=== PATIENT | female | born 1965 | race Caucasian/White ===

== ENCOUNTER 2016-06-29 13:32 | Observation (INO) | payer OTHER, MEDICAID ==
[~2016-06-29] VITALS: Ht 154.9 cm; Wt 63.0 kg
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
[2016-06-29 13:59] VITALS: BP 128/82; PULSE 97; RESP 17; TEMP 98.4; O2SAT 97
[2016-06-29 14:32] LABS: AUTOMATED NEUTROPHIL # 3.3 TH/MM3 (1.8-7.7); BASOPHIL % 0.5 % (0.0-2.0); HEMATOCRIT 40.3 % (35.0-46.0); HEMO FLAGS DIFF FINAL; LYMPH % 23.6 % (9.0-44.0); LYMPHOCYTE # 1.2 TH/MM3 (1.0-4.8); MEAN CELL VOLUME 87.3 FL (80.0-100.0); MEAN CORPUSCULAR HEMOGLOBIN 29.4 PG (27.0-34.0); MEAN CORPUSCULAR HGB CONC 33.7 % (32.0-36.0); NEUT % 66.9 % (16.0-70.0); PLATELET COUNT 103 TH/MM3 (150-450); RED BLOOD COUNT 4.61 MIL/MM3 (4.00-5.30); RED CELL DISTRIBUTION WIDTH 12.7 % (11.6-17.2)
[2016-06-29 15:02] LABS: BACTERIA, URINE RARE /hpf; BLOOD, URINE NEG (NEG); COMMENT (UR) CULTURE INDICATED; CULTURE IF INDICATED CULTURE INDICATED; GLUCOSE,URINE NEG (NEG); KETONE, URINE NEG (NEG); NITRITE,URINE NEG (NEG); SQUAMOUS EPITHELIAL CELL URINE 2 /hpf (0-5); URINE COLOR YELLOW (YELLW/STRAW)
[2016-06-29 15:04] LABS: ALKALINE PHOSPHATASE 74 U/L (45-117); ALT (GPT) 53 U/L (10-53); ANION GAP 10 MEQ/L (5-15); AST (GOT) 38 U/L (15-37); BICARBONATE 23.1 MEQ/L (21.0-32.0); BLOOD UREA NITROGEN 13 MG/DL (7-18); CHLORIDE 108 MEQ/L (98-107); GLOMERULAR FILTRATION RATE 84 ML/MIN (>89); SODIUM (NA) 141 MEQ/L (136-145); TOTAL BILIRUBIN ADULT 0.3 MG/DL (0.2-1.0)
[2016-06-29 15:04] LABS: AMPHETAMINE, URINE NEG (NEG); BARBITURATES, URINE NEG (NEG); COCAINE, URINE NEG (NEG)
[2016-06-29] MEDS ORDERED: MACR100C2 PO (15:18)
[2016-06-29] MEDS ORDERED: NITROFURANTOIN MONOHYD MACROCR 100 MG CAP PO ONE (15:30)
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
[2016-06-29] MEDS ORDERED: CEFEPIME INJ 2,000 MG in SODIUM CHLORIDE 0.9% INJ 100 ML IV STA (18:54)
[2016-06-29] MEDS ORDERED: SODIUM CHLOR 0.9% 1000 ML INJ 1,000 ML IV ONE (19:00)
[2016-06-29] MEDS ORDERED: SODIUM CHLORIDE 0.9% FLUSH 5 ML FLUSH FLUSH PRN (20:15)
[2016-06-29] MEDS ORDERED: NALOXONE HCL 0.4 MG/ML AMP IV PRN (20:15)
[2016-06-29 20:20] VITALS: BP 141/93; PULSE 79; O2SAT 100
[2016-06-29] MEDS: SODIUM CHLOR 0.9% 1000 ML INJ 1,000 ML IV SCH (21:42)
[2016-06-29] MEDS: SODIUM CHLORIDE 0.9% FLUSH 5 ML FLUSH FLUSH SCH (21:42)
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
[2016-06-29 22:12] VITALS: BP 140/70; PULSE 80; RESP 18; O2SAT 100
[2016-06-29 23:31] VITALS: BP 134/94; PULSE 70; RESP 18; O2SAT 98
[2016-06-30] VITALS (8 sets, daily range): BP systolic 121–188; BP diastolic 81–115; PULSE 63–111; RESP 16–24; TEMP 97.5–98.9; O2SAT 95–100
[2016-06-30] MEDS: SODIUM CHLOR 0.9% 1000 ML INJ 1,000 ML IV SCH ×2 (04:37→16:03)
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
[2016-06-30] MEDS: CEFEPIME INJ 2,000 MG in SODIUM CHLORIDE 0.9% INJ 100 ML IV SCH ×2 (10:48→20:10)
[2016-06-30] MEDS: SODIUM CHLORIDE 0.9% FLUSH 5 ML FLUSH FLUSH SCH ×2 (10:49→21:00)
[2016-06-30 12:01] LABS: AUTOMATED NEUTROPHIL # 3.1 TH/MM3 (1.8-7.7); BASOPHIL % 0.1 % (0.0-2.0); EOSINOPHIL % 0.1 % (0.0-4.0); HEMATOCRIT 41.5 % (35.0-46.0); HEMO FLAGS DIFF FINAL; LYMPH % 23.2 % (9.0-44.0); LYMPHOCYTE # 1.1 TH/MM3 (1.0-4.8); MEAN CELL VOLUME 88.3 FL (80.0-100.0); MEAN CORPUSCULAR HEMOGLOBIN 29.5 PG (27.0-34.0); MEAN CORPUSCULAR HGB CONC 33.5 % (32.0-36.0); MONO % 12.1 % (0.0-8.0); NEUT % 64.5 % (16.0-70.0); PLATELET COUNT 112 TH/MM3 (150-450); RED BLOOD COUNT 4.69 MIL/MM3 (4.00-5.30); RED CELL DISTRIBUTION WIDTH 12.7 % (11.6-17.2); WHITE BLOOD COUNT 4.8 TH/MM3 (4.0-11.0)
[2016-06-30 12:26] LABS: BICARBONATE 23.5 MEQ/L (21.0-32.0); POTASSIUM 3.7 MEQ/L (3.5-5.1)
[2016-07-01 00:59] VITALS: PULSE 72
[2016-07-01] MEDS: SODIUM CHLOR 0.9% 1000 ML INJ 1,000 ML IV SCH (02:03)
[2016-07-01 03:26] VITALS: BP 152/94; PULSE 80; O2SAT 96
[2016-07-01] MEDS: CEFEPIME INJ 2,000 MG in SODIUM CHLORIDE 0.9% INJ 100 ML IV SCH (07:38)
[2016-07-01] MEDS: SODIUM CHLORIDE 0.9% FLUSH 5 ML FLUSH FLUSH SCH (07:38)
[2016-07-01 08:18] VITALS: PULSE 69
[2016-07-01 11:16] VITALS: BP 158/87; PULSE 99; RESP 18; TEMP 98.1; O2SAT 96
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
[2016-07-01 15:16] VITALS: BP 137/79; PULSE 104; RESP 18; TEMP 98.2; O2SAT 97
== END 2016-07-01 16:38 | disposition home or self-care (01) ==
LOC: NEPC 13:32 → NEDA 18:51 → NEPGCP 23:29
PROVIDERS: ADMIT Internal Medicine; ATTEND Internal Medicine
DX: F05 Delirium due to known physiological condition (principal); N39.0 Urinary tract infection, site not specified; Z87.820 Personal history of traumatic brain injury; F29 Unspecified psychosis not due to a substance or known physiological condition; M21.371 Foot drop, right foot; M21.331 Wrist drop, right wrist; R45.1 Restlessness and agitation; R56.9 Unspecified convulsions; F17.210 Nicotine dependence, cigarettes, uncomplicated; R82.90 Unspecified abnormal findings in urine
CPT/HCPCS: 80048; 80053; 80307; 81001; 83605; 85025; 87040; 87086; 97163; 99285; G0378; G8987; G8988; J0692; J7030

== ENCOUNTER 2016-07-08 01:48 | Emergency (ER) | payer OTHER ==
[~2016-07-08] VITALS: Ht 154.9 cm; Wt 68.0 kg
[~2016-07-08 01:48] MED LIST: MACR100C2 PO
[2016-07-08 01:51] VITALS: BP 176/90; PULSE 90; RESP 18; TEMP 98; O2SAT 98
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
[2016-07-08] MEDS ORDERED: SERO100T PO (14:40)
[2016-07-08] MEDS ORDERED: GABA300C5 PO (14:40)
[2016-07-08] MEDS ORDERED: LACO100 PO (14:40)
[2016-07-08] MEDS ORDERED: SERO50TA PO (14:40)
[2016-07-08] MEDS ORDERED: DIVA250ER PO (14:40)
[2016-07-08] MEDS ORDERED: BUSP10TA PO (14:40)
[2016-07-08] MEDS ORDERED: LEVE500 PO (14:40)
[2016-07-08] MEDS ORDERED: VITA1000 PO (14:40)
== END 2016-07-08 05:59 ==
LOC: NEPA 01:48
DX: T76.21XA Adult sexual abuse, suspected, initial encounter (principal); S40.022A Contusion of left upper arm, initial encounter
CPT/HCPCS: 99284

== ENCOUNTER 2016-07-08 12:18 | Inpatient (IN) | payer OTHER, MEDICAID, MEDICARE ==
[~2016-07-08] VITALS: Ht 152.4 cm; Wt 75.8 kg
[2016-07-08 12:53] VITALS: BP 188/94; PULSE 70; RESP 18; TEMP 98.4; O2SAT 99
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
[2016-07-08 14:00] VITALS: BP 160/82; PULSE 57; RESP 18; TEMP 98.7; O2SAT 94
[2016-07-08] MEDS ORDERED: GABA300C5 PO (14:40)
[2016-07-08] MEDS ORDERED: VITA1000 PO (14:40)
[2016-07-08] MEDS ORDERED: SERO50TA PO (14:40)
[2016-07-08] MEDS ORDERED: SERO100T PO (14:40)
[2016-07-08] MEDS ORDERED: LACO100 PO (14:40)
[2016-07-08] MEDS ORDERED: LEVE500 PO (14:40)
[2016-07-08] MEDS ORDERED: BUSP10TA PO (14:40)
[2016-07-08] MEDS ORDERED: DIVA250ER PO (14:40)
[2016-07-08] MEDS: QUEtiapine FUMARATE 25 MG TAB PO SCH ×2 (15:00→20:17)
[2016-07-08] MEDS: DIVALPROEX SODIUM E.R. 250 MG TAB PO SCH ×2 (15:00→20:17)
[2016-07-08] MEDS: busPIRone HCL 10 MG TAB PO SCH ×2 (15:00→20:17)
[2016-07-08] MEDS: GABAPENTIN 300 MG CAP PO SCH (16:40)
[2016-07-08] MEDS: levETIRAcetam 500 MG TAB PO SCH (16:40)
[2016-07-08 18:30] VITALS: BP 125/72; PULSE 76; RESP 18
[2016-07-08] MEDS ORDERED: LORazepam 1 MG TAB PO PRN (20:45)
[2016-07-08] MEDS ORDERED: LORazepam 2 MG/ML VIAL IM PRN (20:45)
[2016-07-08 22:20] VITALS: BP 141/70; PULSE 73; RESP 18; O2SAT 99
[2016-07-09 02:05] VITALS: BP 121/86; PULSE 83; RESP 18; O2SAT 96
[2016-07-09 06:28] VITALS: BP_SYST 126; BP_DIAS 6; BP_DIAS 76; PULSE 90; RESP 18; O2SAT 98
[2016-07-09] MEDS: DIVALPROEX SODIUM E.R. 250 MG TAB PO SCH ×2 (09:00→20:41)
[2016-07-09] MEDS: busPIRone HCL 10 MG TAB PO SCH ×2 (09:00→20:41)
[2016-07-09] MEDS: GABAPENTIN 300 MG CAP PO SCH ×3 (09:00→18:05)
[2016-07-09] MEDS: QUEtiapine FUMARATE 25 MG TAB PO SCH (09:00)
[2016-07-09] MEDS: levETIRAcetam 500 MG TAB PO SCH ×3 (09:00→18:04)
[2016-07-09] MEDS ORDERED: ACETAMINOPHEN 325 MG TAB PO PRN (10:45)
[2016-07-09] MEDS ORDERED: MAGNESIUM HYDROXIDE SUSP 30 ML CUP PO PRN (10:45)
[2016-07-09] MEDS ORDERED: diphenhydrAMINE HCL 50 MG CAP PO PRN (10:45)
[2016-07-09] MEDS ORDERED: ALUMINUM/MAGNESIUM/SIMETH 30 ML CUP PO PRN (10:45)
[2016-07-09] MEDS ORDERED: diphenhydrAMINE HCL 50 MG/ML VIAL IM PRN (10:45)
[2016-07-09 11:04] VITALS: BP 119/80; PULSE 77; RESP 17; O2SAT 96
[2016-07-09 13:38] VITALS: BP 112/75; PULSE 93; RESP 16; TEMP 97.3; O2SAT 98
[2016-07-09] MEDS: CHOLECALCIFEROL (VIT D3) 1000 UNIT TAB PO SCH (13:42)
[2016-07-09 16:33] VITALS: BP 108/69; PULSE 82; RESP 18; TEMP 98.2; O2SAT 97
[2016-07-09] MEDS: LACOSAMIDE 100 MG TAB PO SCH (20:41)
[2016-07-09] MEDS ORDERED: QUEtiapine FUMARATE 100 MG TAB PO SCH (21:00)
[2016-07-10 05:24] VITALS: BP 93/56; PULSE 69; RESP 16; TEMP 97; O2SAT 96
[2016-07-10 07:40] LABS: ANION GAP 7 MEQ/L (5-15); BICARBONATE 28.5 MEQ/L (21.0-32.0); BLOOD UREA NITROGEN 11 MG/DL (7-18); CHLORIDE 107 MEQ/L (98-107); GLOMERULAR FILTRATION RATE 89 ML/MIN (>89); HDL CHOLESTEROL 43.2 MG/DL (40.0-60.0); LDL CHOLESTEROL 45 MG/DL (0-99); POTASSIUM 5.1 MEQ/L (3.5-5.1); SODIUM (NA) 142 MEQ/L (136-145)
[2016-07-10] MEDS: GABAPENTIN 300 MG CAP PO SCH ×3 (08:48→17:58)
[2016-07-10] MEDS: busPIRone HCL 10 MG TAB PO SCH ×2 (08:49→21:16)
[2016-07-10] MEDS: LACOSAMIDE 100 MG TAB PO SCH ×2 (08:49→21:16)
[2016-07-10] MEDS: CHOLECALCIFEROL (VIT D3) 1000 UNIT TAB PO SCH (08:49)
[2016-07-10] MEDS: DIVALPROEX SODIUM E.R. 250 MG TAB PO SCH ×2 (08:50→21:18)
[2016-07-10] MEDS: levETIRAcetam 500 MG TAB PO SCH ×3 (08:50→17:58)
[2016-07-10] MEDS: NICOTINE 21 MG/24 HR PATCH T-DERMAL SCH (08:54)
[2016-07-10] MEDS ORDERED: ALUMINUM/MAGNESIUM/SIMETH 30 ML CUP PO PRN (12:15)
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
[2016-07-10 16:09] LABS: HEMOGLOBIN A1a 0.9 %; HEMOGLOBIN A1b 0.7 %; HEMOGLOBIN F 0.6 %; HEMOGLOBIN LA1C 1.6 %; HEMOGLOBIN P3 3.2 %
[2016-07-10 16:52] VITALS: BP 104/81; PULSE 77; RESP 18; TEMP 97.3; O2SAT 99
[2016-07-10] MEDS: REMOVE OLD NICOTINE PATCH T-DERMAL SCH (21:00)
[2016-07-10] MEDS: QUEtiapine FUMARATE 100 MG TAB PO SCH (21:16)
[2016-07-11 06:24] VITALS: BP 111/82; PULSE 69; RESP 18; TEMP 98.3; O2SAT 99
[2016-07-11] MEDS: busPIRone HCL 10 MG TAB PO SCH (09:40)
[2016-07-11] MEDS: levETIRAcetam 500 MG TAB PO SCH ×3 (09:40→17:16)
[2016-07-11] MEDS: LACOSAMIDE 100 MG TAB PO SCH ×2 (09:40→21:23)
[2016-07-11] MEDS: CHOLECALCIFEROL (VIT D3) 1000 UNIT TAB PO SCH (09:40)
[2016-07-11] MEDS: GABAPENTIN 300 MG CAP PO SCH ×3 (09:41→17:16)
[2016-07-11] MEDS: DIVALPROEX SODIUM E.R. 250 MG TAB PO SCH ×2 (09:41→21:23)
[2016-07-11] MEDS: NICOTINE 21 MG/24 HR PATCH T-DERMAL SCH (09:44)
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
[2016-07-11] MEDS: QUEtiapine FUMARATE 25 MG TAB PO SCH (15:53)
[2016-07-11 17:50] VITALS: BP 127/87; PULSE 78; RESP 18; TEMP 98.2; O2SAT 98
[2016-07-11] MEDS: REMOVE OLD NICOTINE PATCH T-DERMAL SCH (21:00)
[2016-07-11] MEDS: QUEtiapine FUMARATE 100 MG TAB PO SCH (21:23)
[2016-07-12 05:49] VITALS: BP 115/56; PULSE 81; RESP 18; TEMP 98.2; O2SAT 100
[2016-07-12] MEDS: REMOVE OLD NICOTINE PATCH T-DERMAL SCH (08:48)
[2016-07-12] MEDS: NICOTINE 21 MG/24 HR PATCH T-DERMAL SCH (08:48)
[2016-07-12] MEDS: LACOSAMIDE 100 MG TAB PO SCH ×2 (08:49→20:18)
[2016-07-12] MEDS: CHOLECALCIFEROL (VIT D3) 1000 UNIT TAB PO SCH (08:49)
[2016-07-12] MEDS: DIVALPROEX SODIUM E.R. 250 MG TAB PO SCH (08:49)
[2016-07-12] MEDS: GABAPENTIN 300 MG CAP PO SCH ×3 (08:49→18:00)
[2016-07-12] MEDS: QUEtiapine FUMARATE 25 MG TAB PO SCH ×2 (08:49→16:25)
[2016-07-12] MEDS: levETIRAcetam 500 MG TAB PO SCH ×3 (08:53→17:51)
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
[2016-07-12 16:50] VITALS: BP 135/70; PULSE 84; RESP 18; TEMP 98; O2SAT 98
[2016-07-12] MEDS: QUEtiapine FUMARATE 100 MG TAB PO SCH (20:18)
[2016-07-12] MEDS: DIVALPROEX SODIUM E.R. 500 MG TAB PO SCH (20:18)
[2016-07-13 05:15] VITALS: BP 109/72; PULSE 88; RESP 16; TEMP 97.9; O2SAT 98
[2016-07-13] MEDS: QUEtiapine FUMARATE 25 MG TAB PO SCH ×2 (08:24→15:27)
[2016-07-13] MEDS: DIVALPROEX SODIUM E.R. 250 MG TAB PO SCH (08:24)
[2016-07-13] MEDS: LACOSAMIDE 100 MG TAB PO SCH ×2 (08:25→20:42)
[2016-07-13] MEDS: NICOTINE 21 MG/24 HR PATCH T-DERMAL SCH (08:25)
[2016-07-13] MEDS: GABAPENTIN 300 MG CAP PO SCH ×3 (08:25→17:02)
[2016-07-13] MEDS: CHOLECALCIFEROL (VIT D3) 1000 UNIT TAB PO SCH (08:25)
[2016-07-13] MEDS: levETIRAcetam 500 MG TAB PO SCH ×3 (08:26→17:02)
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
[2016-07-13] MEDS: QUEtiapine FUMARATE 100 MG TAB PO SCH (20:42)
[2016-07-13] MEDS: DIVALPROEX SODIUM E.R. 500 MG TAB PO SCH (20:42)
[2016-07-13] MEDS: REMOVE OLD NICOTINE PATCH T-DERMAL SCH (20:46)
[2016-07-13 21:37] VITALS: BP 109/72; PULSE 88; RESP 16; TEMP 97.9; O2SAT 98
[2016-07-14 06:09] VITALS: BP 102/56; PULSE 92; RESP 16; TEMP 99.2; O2SAT 99
[2016-07-14] MEDS: CHOLECALCIFEROL (VIT D3) 1000 UNIT TAB PO SCH (08:45)
[2016-07-14] MEDS: LACOSAMIDE 100 MG TAB PO SCH ×2 (08:46→20:15)
[2016-07-14] MEDS: NICOTINE 21 MG/24 HR PATCH T-DERMAL SCH (08:46)
[2016-07-14] MEDS: DIVALPROEX SODIUM E.R. 250 MG TAB PO SCH (08:46)
[2016-07-14] MEDS: levETIRAcetam 500 MG TAB PO SCH ×3 (08:46→18:03)
[2016-07-14] MEDS: QUEtiapine FUMARATE 25 MG TAB PO SCH ×2 (08:46→16:00)
[2016-07-14] MEDS: GABAPENTIN 300 MG CAP PO SCH ×3 (08:47→18:03)
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
[2016-07-14 19:14] VITALS: BP 131/91; PULSE 96; RESP 17; TEMP 97.8; O2SAT 100
[2016-07-14] MEDS: REMOVE OLD NICOTINE PATCH T-DERMAL SCH (19:44)
[2016-07-14] MEDS: QUEtiapine FUMARATE 100 MG TAB PO SCH (20:15)
[2016-07-14] MEDS: DIVALPROEX SODIUM E.R. 500 MG TAB PO SCH (20:16)
[2016-07-15 06:16] VITALS: BP 102/57; PULSE 92; RESP 19; TEMP 98.4; O2SAT 92
[2016-07-15] MEDS: GABAPENTIN 300 MG CAP PO SCH ×3 (09:43→18:15)
[2016-07-15] MEDS: QUEtiapine FUMARATE 25 MG TAB PO SCH ×2 (09:43→16:35)
[2016-07-15] MEDS: levETIRAcetam 500 MG TAB PO SCH ×3 (09:43→18:15)
[2016-07-15] MEDS: CHOLECALCIFEROL (VIT D3) 1000 UNIT TAB PO SCH (09:44)
[2016-07-15] MEDS: NICOTINE 21 MG/24 HR PATCH T-DERMAL SCH (09:44)
[2016-07-15] MEDS: DIVALPROEX SODIUM E.R. 250 MG TAB PO SCH (09:44)
[2016-07-15] MEDS: LACOSAMIDE 100 MG TAB PO SCH ×2 (09:44→21:16)
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
[2016-07-15] MEDS: REMOVE OLD NICOTINE PATCH T-DERMAL SCH (19:42)
[2016-07-15 20:14] VITALS: BP 111/83; PULSE 84; RESP 18; TEMP 97.2; O2SAT 97
[2016-07-15] MEDS: QUEtiapine FUMARATE 100 MG TAB PO SCH (21:16)
[2016-07-15] MEDS: DIVALPROEX SODIUM E.R. 500 MG TAB PO SCH (21:16)
[2016-07-16 06:00] VITALS: BP 129/78; PULSE 99; RESP 18; TEMP 97.4; O2SAT 96
[2016-07-16] MEDS: NICOTINE 21 MG/24 HR PATCH T-DERMAL SCH (09:00)
[2016-07-16] MEDS: DIVALPROEX SODIUM E.R. 250 MG TAB PO SCH (09:32)
[2016-07-16] MEDS: LACOSAMIDE 100 MG TAB PO SCH ×2 (09:32→21:46)
[2016-07-16] MEDS: QUEtiapine FUMARATE 25 MG TAB PO SCH ×2 (09:32→16:11)
[2016-07-16] MEDS: levETIRAcetam 500 MG TAB PO SCH ×3 (09:32→19:44)
[2016-07-16] MEDS: GABAPENTIN 300 MG CAP PO SCH ×3 (09:32→19:44)
[2016-07-16] MEDS: CHOLECALCIFEROL (VIT D3) 1000 UNIT TAB PO SCH (09:33)
[2016-07-16 17:15] VITALS: BP 142/88; PULSE 72; RESP 18; TEMP 96.9; O2SAT 97
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
[2016-07-16] MEDS: REMOVE OLD NICOTINE PATCH T-DERMAL SCH (19:56)
[2016-07-16] MEDS: QUEtiapine FUMARATE 100 MG TAB PO SCH (21:46)
[2016-07-16] MEDS: DIVALPROEX SODIUM E.R. 500 MG TAB PO SCH (21:46)
[2016-07-17 06:01] VITALS: BP 105/82; PULSE 95; RESP 20; TEMP 98.4; O2SAT 96
[2016-07-17] MEDS: NICOTINE 21 MG/24 HR PATCH T-DERMAL SCH (09:00)
[2016-07-17] MEDS: GABAPENTIN 300 MG CAP PO SCH ×3 (09:14→19:42)
[2016-07-17] MEDS: levETIRAcetam 500 MG TAB PO SCH ×3 (09:14→19:42)
[2016-07-17] MEDS: LACOSAMIDE 100 MG TAB PO SCH ×2 (09:15→21:42)
[2016-07-17] MEDS: QUEtiapine FUMARATE 25 MG TAB PO SCH ×2 (09:15→16:59)
[2016-07-17] MEDS: CHOLECALCIFEROL (VIT D3) 1000 UNIT TAB PO SCH (09:15)
[2016-07-17] MEDS: DIVALPROEX SODIUM E.R. 250 MG TAB PO SCH (09:15)
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
[2016-07-17 17:45] VITALS: BP 115/89; PULSE 86; RESP 18; TEMP 98.1; O2SAT 96
[2016-07-17] MEDS: REMOVE OLD NICOTINE PATCH T-DERMAL SCH (21:00)
[2016-07-17] MEDS: traZODone HCL 50 MG TAB PO PRN (21:42)
[2016-07-17] MEDS: DIVALPROEX SODIUM E.R. 500 MG TAB PO SCH (21:42)
[2016-07-17] MEDS: QUEtiapine FUMARATE 100 MG TAB PO SCH (21:42)
[2016-07-18 05:57] VITALS: BP 109/75; PULSE 94; RESP 15; TEMP 98.2; O2SAT 97
[2016-07-18] MEDS: GABAPENTIN 300 MG CAP PO SCH ×3 (08:47→18:08)
[2016-07-18] MEDS: QUEtiapine FUMARATE 25 MG TAB PO SCH ×2 (08:47→16:03)
[2016-07-18] MEDS: LACOSAMIDE 100 MG TAB PO SCH ×2 (08:47→20:51)
[2016-07-18] MEDS: levETIRAcetam 500 MG TAB PO SCH ×3 (08:48→18:08)
[2016-07-18] MEDS: CHOLECALCIFEROL (VIT D3) 1000 UNIT TAB PO SCH (08:48)
[2016-07-18] MEDS: DIVALPROEX SODIUM E.R. 500 MG TAB PO SCH ×2 (08:48→20:52)
[2016-07-18] MEDS: NICOTINE 21 MG/24 HR PATCH T-DERMAL SCH (09:00)
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
[2016-07-18 16:48] VITALS: BP 120/85; PULSE 78; RESP 18; TEMP 97.6; O2SAT 98
[2016-07-18 19:35] VITALS: BP 120/85; PULSE 78; RESP 18; TEMP 97.6; O2SAT 98
[2016-07-18] MEDS: QUEtiapine FUMARATE 100 MG TAB PO SCH (20:51)
[2016-07-18] MEDS: traZODone HCL 50 MG TAB PO PRN (20:52)
[2016-07-18] MEDS: REMOVE OLD NICOTINE PATCH T-DERMAL SCH (20:57)
[2016-07-19 05:51] VITALS: BP 113/84; PULSE 76; RESP 20; TEMP 98.1; O2SAT 100
[2016-07-19 06:00] VITALS: BP 113/84; PULSE 76; RESP 20; TEMP 98.1; O2SAT 100
[2016-07-19] MEDS: GABAPENTIN 300 MG CAP PO SCH ×3 (08:14→17:11)
[2016-07-19] MEDS: levETIRAcetam 500 MG TAB PO SCH ×3 (08:18→17:10)
[2016-07-19] MEDS: DIVALPROEX SODIUM E.R. 500 MG TAB PO SCH ×2 (08:18→21:11)
[2016-07-19] MEDS: QUEtiapine FUMARATE 25 MG TAB PO SCH ×2 (08:18→16:03)
[2016-07-19] MEDS: LACOSAMIDE 100 MG TAB PO SCH ×2 (08:18→21:10)
[2016-07-19] MEDS: CHOLECALCIFEROL (VIT D3) 1000 UNIT TAB PO SCH (08:18)
[2016-07-19] MEDS: NICOTINE 21 MG/24 HR PATCH T-DERMAL SCH (08:20)
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
[2016-07-19 18:08] VITALS: BP 134/84; PULSE 89; RESP 18; TEMP 97.9; O2SAT 100
[2016-07-19] MEDS: REMOVE OLD NICOTINE PATCH T-DERMAL SCH (21:00)
[2016-07-19] MEDS: traZODone HCL 50 MG TAB PO PRN (21:11)
[2016-07-19] MEDS: QUEtiapine FUMARATE 100 MG TAB PO SCH (21:11)
[2016-07-20 06:09] VITALS: BP 119/74; PULSE 94; RESP 18; TEMP 97.4; O2SAT 97
[2016-07-20] MEDS: NICOTINE 21 MG/24 HR PATCH T-DERMAL SCH (09:00)
[2016-07-20] MEDS: levETIRAcetam 500 MG TAB PO SCH ×3 (09:51→17:34)
[2016-07-20] MEDS: LACOSAMIDE 100 MG TAB PO SCH ×2 (09:51→21:13)
[2016-07-20] MEDS: QUEtiapine FUMARATE 100 MG TAB PO SCH ×2 (09:51→21:13)
[2016-07-20] MEDS: GABAPENTIN 300 MG CAP PO SCH ×3 (09:51→17:34)
[2016-07-20] MEDS: CHOLECALCIFEROL (VIT D3) 1000 UNIT TAB PO SCH (09:51)
[2016-07-20] MEDS: DIVALPROEX SODIUM E.R. 500 MG TAB PO SCH ×2 (09:51→21:13)
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
[2016-07-20] MEDS: QUEtiapine FUMARATE 25 MG TAB PO SCH (17:33)
[2016-07-20 19:15] VITALS: BP 126/78; PULSE 76; RESP 20; TEMP 98.7; O2SAT 99
[2016-07-20] MEDS: REMOVE OLD NICOTINE PATCH T-DERMAL SCH (21:00)
[2016-07-21 06:03] VITALS: BP 118/68; PULSE 82; RESP 18; TEMP 97.8; O2SAT 97
[2016-07-21] MEDS: QUEtiapine FUMARATE 100 MG TAB PO SCH ×2 (08:17→20:50)
[2016-07-21] MEDS: CHOLECALCIFEROL (VIT D3) 1000 UNIT TAB PO SCH (08:17)
[2016-07-21] MEDS: levETIRAcetam 500 MG TAB PO SCH ×3 (08:17→17:02)
[2016-07-21] MEDS: DIVALPROEX SODIUM E.R. 500 MG TAB PO SCH ×2 (08:17→20:50)
[2016-07-21] MEDS: GABAPENTIN 300 MG CAP PO SCH ×3 (08:18→17:03)
[2016-07-21] MEDS: NICOTINE 21 MG/24 HR PATCH T-DERMAL SCH (08:18)
[2016-07-21] MEDS: LACOSAMIDE 100 MG TAB PO SCH ×2 (08:18→20:50)
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
[2016-07-21] MEDS: QUEtiapine FUMARATE 25 MG TAB PO SCH (15:39)
[2016-07-21 18:00] VITALS: BP 133/74; PULSE 104; RESP 18; TEMP 98; O2SAT 98
[2016-07-21] MEDS: REMOVE OLD NICOTINE PATCH T-DERMAL SCH (20:51)
[2016-07-22 05:39] VITALS: BP 163/94; PULSE 82; RESP 18; TEMP 97.2; O2SAT 95
[2016-07-22] MEDS: levETIRAcetam 500 MG TAB PO SCH ×3 (08:38→17:58)
[2016-07-22] MEDS: GABAPENTIN 300 MG CAP PO SCH ×3 (08:38→17:58)
[2016-07-22] MEDS: QUEtiapine FUMARATE 100 MG TAB PO SCH ×2 (08:38→21:35)
[2016-07-22] MEDS: LACOSAMIDE 100 MG TAB PO SCH ×2 (08:39→21:35)
[2016-07-22] MEDS: CHOLECALCIFEROL (VIT D3) 1000 UNIT TAB PO SCH (08:39)
[2016-07-22] MEDS: DIVALPROEX SODIUM E.R. 500 MG TAB PO SCH ×2 (08:39→21:35)
[2016-07-22] MEDS: NICOTINE 21 MG/24 HR PATCH T-DERMAL SCH (08:40)
[2016-07-22] MEDS: QUEtiapine FUMARATE 25 MG TAB PO SCH (14:08)
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
[2016-07-22 19:16] VITALS: BP 121/83; PULSE 92; RESP 18; TEMP 97.5; O2SAT 98
[2016-07-22] MEDS: REMOVE OLD NICOTINE PATCH T-DERMAL SCH (21:00)
[2016-07-22] MEDS: traZODone HCL 50 MG TAB PO PRN (21:36)
[2016-07-23 06:09] VITALS: BP 122/85; PULSE 71; RESP 16; TEMP 98.4; O2SAT 98
[2016-07-23] MEDS: NICOTINE 21 MG/24 HR PATCH T-DERMAL SCH (09:00)
[2016-07-23] MEDS: QUEtiapine FUMARATE 100 MG TAB PO SCH ×2 (09:20→20:44)
[2016-07-23] MEDS: levETIRAcetam 500 MG TAB PO SCH ×3 (09:20→17:49)
[2016-07-23] MEDS: DIVALPROEX SODIUM E.R. 500 MG TAB PO SCH ×2 (09:21→20:44)
[2016-07-23] MEDS: LACOSAMIDE 100 MG TAB PO SCH ×2 (09:21→20:44)
[2016-07-23] MEDS: GABAPENTIN 300 MG CAP PO SCH ×3 (09:21→17:52)
[2016-07-23] MEDS: CHOLECALCIFEROL (VIT D3) 1000 UNIT TAB PO SCH (09:21)
[2016-07-23] MEDS: QUEtiapine FUMARATE 25 MG TAB PO SCH (16:00)
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
[2016-07-23 19:43] VITALS: BP 140/79; PULSE 84; TEMP 98.6; O2SAT 100
[2016-07-23] MEDS: traZODone HCL 50 MG TAB PO PRN (20:45)
[2016-07-23] MEDS: REMOVE OLD NICOTINE PATCH T-DERMAL SCH (21:00)
[2016-07-24 05:52] VITALS: BP 122/67; PULSE 82; RESP 18; TEMP 98.4; O2SAT 95
[2016-07-24] MEDS: levETIRAcetam 500 MG TAB PO SCH ×3 (08:41→17:01)
[2016-07-24] MEDS: CHOLECALCIFEROL (VIT D3) 1000 UNIT TAB PO SCH (08:41)
[2016-07-24] MEDS: DIVALPROEX SODIUM E.R. 500 MG TAB PO SCH ×2 (08:41→21:01)
[2016-07-24] MEDS: GABAPENTIN 300 MG CAP PO SCH ×3 (08:41→17:02)
[2016-07-24] MEDS: LACOSAMIDE 100 MG TAB PO SCH ×2 (08:41→21:01)
[2016-07-24] MEDS: QUEtiapine FUMARATE 100 MG TAB PO SCH ×2 (08:41→21:01)
[2016-07-24] MEDS: NICOTINE 21 MG/24 HR PATCH T-DERMAL SCH (08:42)
[2016-07-24] MEDS: QUEtiapine FUMARATE 25 MG TAB PO SCH (15:15)
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
[2016-07-24 17:59] VITALS: BP 124/83; PULSE 88; RESP 20; TEMP 96.9; O2SAT 100
[2016-07-24] MEDS: REMOVE OLD NICOTINE PATCH T-DERMAL SCH (21:00)
[2016-07-24] MEDS: traZODone HCL 50 MG TAB PO PRN (21:01)
[2016-07-25 05:12] VITALS: BP 127/78; PULSE 77; RESP 18; TEMP 98.3; O2SAT 98
[2016-07-25] MEDS: NICOTINE 21 MG/24 HR PATCH T-DERMAL SCH (09:00)
[2016-07-25] MEDS: LACOSAMIDE 100 MG TAB PO SCH ×2 (09:33→20:26)
[2016-07-25] MEDS: GABAPENTIN 300 MG CAP PO SCH ×3 (09:33→17:45)
[2016-07-25] MEDS: CHOLECALCIFEROL (VIT D3) 1000 UNIT TAB PO SCH (09:34)
[2016-07-25] MEDS: levETIRAcetam 500 MG TAB PO SCH ×3 (09:34→17:46)
[2016-07-25] MEDS: QUEtiapine FUMARATE 100 MG TAB PO SCH ×2 (09:34→20:25)
[2016-07-25] MEDS: DIVALPROEX SODIUM E.R. 500 MG TAB PO SCH ×2 (09:36→20:26)
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
[2016-07-25] MEDS: QUEtiapine FUMARATE 25 MG TAB PO SCH (15:08)
[2016-07-25 17:41] VITALS: BP 117/80; PULSE 76; RESP 18; TEMP 97.1; O2SAT 96
[2016-07-25] MEDS: REMOVE OLD NICOTINE PATCH T-DERMAL SCH (20:28)
[2016-07-26 05:11] VITALS: BP 131/85; PULSE 106; RESP 17; TEMP 98.3; O2SAT 96
[2016-07-26] MEDS: NICOTINE 21 MG/24 HR PATCH T-DERMAL SCH (08:05)
[2016-07-26] MEDS: REMOVE OLD NICOTINE PATCH T-DERMAL SCH (08:07)
[2016-07-26] MEDS: CHOLECALCIFEROL (VIT D3) 1000 UNIT TAB PO SCH (08:08)
[2016-07-26] MEDS: DIVALPROEX SODIUM E.R. 500 MG TAB PO SCH ×2 (08:08→20:58)
[2016-07-26] MEDS: LACOSAMIDE 100 MG TAB PO SCH ×2 (08:08→20:57)
[2016-07-26] MEDS: GABAPENTIN 300 MG CAP PO SCH ×3 (08:08→17:30)
[2016-07-26] MEDS: QUEtiapine FUMARATE 100 MG TAB PO SCH ×2 (08:08→20:58)
[2016-07-26] MEDS: levETIRAcetam 500 MG TAB PO SCH ×3 (08:08→17:30)
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
[2016-07-26] MEDS: QUEtiapine FUMARATE 25 MG TAB PO SCH (15:54)
[2016-07-26 16:00] VITALS: BP 138/55; PULSE 89; RESP 16; TEMP 97.8; O2SAT 98
[2016-07-26] MEDS: traZODone HCL 50 MG TAB PO PRN (21:08)
[2016-07-27 05:39] VITALS: BP 132/71; PULSE 79; RESP 16; TEMP 98; O2SAT 97
[2016-07-27] MEDS: DIVALPROEX SODIUM E.R. 500 MG TAB PO SCH ×2 (08:49→20:58)
[2016-07-27] MEDS: LACOSAMIDE 100 MG TAB PO SCH ×2 (08:49→20:58)
[2016-07-27] MEDS: levETIRAcetam 500 MG TAB PO SCH ×3 (08:49→17:52)
[2016-07-27] MEDS: GABAPENTIN 300 MG CAP PO SCH ×3 (08:49→17:52)
[2016-07-27] MEDS: CHOLECALCIFEROL (VIT D3) 1000 UNIT TAB PO SCH (08:49)
[2016-07-27] MEDS: QUEtiapine FUMARATE 100 MG TAB PO SCH ×2 (08:49→20:58)
[2016-07-27] MEDS: NICOTINE 21 MG/24 HR PATCH T-DERMAL SCH (08:51)
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
[2016-07-27] MEDS: QUEtiapine FUMARATE 25 MG TAB PO SCH (15:15)
[2016-07-27] MEDS: MAGNESIUM HYDROXIDE SUSP 30 ML CUP PO PRN (20:58)
[2016-07-27] MEDS: traZODone HCL 50 MG TAB PO PRN (20:58)
[2016-07-28 04:56] VITALS: BP 110/73; PULSE 86; RESP 18; TEMP 98.8; O2SAT 100
[2016-07-28] MEDS: levETIRAcetam 500 MG TAB PO SCH ×3 (08:16→17:40)
[2016-07-28] MEDS: LACOSAMIDE 100 MG TAB PO SCH ×2 (08:16→21:27)
[2016-07-28] MEDS: QUEtiapine FUMARATE 100 MG TAB PO SCH ×2 (08:16→21:27)
[2016-07-28] MEDS: GABAPENTIN 300 MG CAP PO SCH ×3 (08:16→17:40)
[2016-07-28] MEDS: DIVALPROEX SODIUM E.R. 500 MG TAB PO SCH ×2 (08:16→21:28)
[2016-07-28] MEDS: CHOLECALCIFEROL (VIT D3) 1000 UNIT TAB PO SCH (08:16)
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
[2016-07-28] MEDS: QUEtiapine FUMARATE 25 MG TAB PO SCH (16:00)
[2016-07-28 19:10] VITALS: BP 119/71; PULSE 90; RESP 18; TEMP 95.5; O2SAT 98
[2016-07-29 05:33] VITALS: BP 119/73; PULSE 78; RESP 18; TEMP 98.3; O2SAT 99
[2016-07-29] MEDS: LACOSAMIDE 100 MG TAB PO SCH ×2 (08:21→20:57)
[2016-07-29] MEDS: DIVALPROEX SODIUM E.R. 500 MG TAB PO SCH ×2 (08:21→20:57)
[2016-07-29] MEDS: QUEtiapine FUMARATE 100 MG TAB PO SCH ×2 (08:22→20:57)
[2016-07-29] MEDS: CHOLECALCIFEROL (VIT D3) 1000 UNIT TAB PO SCH (08:22)
[2016-07-29] MEDS: levETIRAcetam 500 MG TAB PO SCH ×3 (08:22→18:15)
[2016-07-29] MEDS: GABAPENTIN 300 MG CAP PO SCH ×3 (08:22→18:15)
[2016-07-29] MEDS: QUEtiapine FUMARATE 25 MG TAB PO SCH (15:15)
[2016-07-29 18:01] VITALS: BP 140/83; PULSE 83; RESP 18; TEMP 98.6; O2SAT 99
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
[2016-07-30 05:18] VITALS: BP 126/77; PULSE 79; RESP 18; TEMP 98.1; O2SAT 100
[2016-07-30] MEDS: levETIRAcetam 500 MG TAB PO SCH ×3 (08:38→17:17)
[2016-07-30] MEDS: GABAPENTIN 300 MG CAP PO SCH ×3 (08:39→17:17)
[2016-07-30] MEDS: QUEtiapine FUMARATE 100 MG TAB PO SCH ×2 (08:39→20:47)
[2016-07-30] MEDS: DIVALPROEX SODIUM E.R. 500 MG TAB PO SCH ×2 (08:39→21:00)
[2016-07-30] MEDS: LACOSAMIDE 100 MG TAB PO SCH ×2 (08:39→20:47)
[2016-07-30] MEDS: CHOLECALCIFEROL (VIT D3) 1000 UNIT TAB PO SCH (08:39)
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
[2016-07-30] MEDS: QUEtiapine FUMARATE 25 MG TAB PO SCH (16:06)
[2016-07-30 18:00] VITALS: BP 118/73; PULSE 83; RESP 18; TEMP 98.7; O2SAT 98
[2016-07-30] MEDS: traZODone HCL 50 MG TAB PO PRN (20:47)
[2016-07-30] MEDS: ACETAMINOPHEN 325 MG TAB PO PRN (20:50)
[2016-07-31 06:37] VITALS: BP 105/64; PULSE 64; RESP 18; TEMP 98.1; O2SAT 100
[2016-07-31] MEDS: QUEtiapine FUMARATE 100 MG TAB PO SCH ×2 (09:00→21:14)
[2016-07-31] MEDS: levETIRAcetam 500 MG TAB PO SCH ×3 (09:00→18:00)
[2016-07-31] MEDS: CHOLECALCIFEROL (VIT D3) 1000 UNIT TAB PO SCH (09:00)
[2016-07-31] MEDS: DIVALPROEX SODIUM E.R. 500 MG TAB PO SCH ×2 (09:00→21:14)
[2016-07-31] MEDS: LACOSAMIDE 100 MG TAB PO SCH ×2 (09:01→21:14)
[2016-07-31] MEDS: GABAPENTIN 300 MG CAP PO SCH ×3 (09:01→18:00)
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
[2016-07-31] MEDS: QUEtiapine FUMARATE 25 MG TAB PO SCH (16:00)
[2016-07-31 17:52] VITALS: BP 139/91; PULSE 87; RESP 17; TEMP 98.6; O2SAT 99
[2016-07-31 19:44] VITALS: BP 135/82; PULSE 81; RESP 18; TEMP 98.2; O2SAT 99
[2016-07-31 22:25] VITALS: BP 131/59; PULSE 80; RESP 18; TEMP 97.6; O2SAT 100
[2016-08-01 03:30] VITALS: BP 139/95; PULSE 87; RESP 18; TEMP 98.3; O2SAT 98
[2016-08-01 06:03] VITALS: BP 116/78; PULSE 88; RESP 18; TEMP 98.5; O2SAT 95
[2016-08-01] MEDS: CHOLECALCIFEROL (VIT D3) 1000 UNIT TAB PO SCH (09:25)
[2016-08-01] MEDS: QUEtiapine FUMARATE 100 MG TAB PO SCH ×2 (09:25→21:25)
[2016-08-01] MEDS: LACOSAMIDE 100 MG TAB PO SCH ×2 (09:25→21:25)
[2016-08-01] MEDS: levETIRAcetam 500 MG TAB PO SCH ×3 (09:25→18:05)
[2016-08-01] MEDS: GABAPENTIN 300 MG CAP PO SCH ×3 (09:25→18:05)
[2016-08-01] MEDS: DIVALPROEX SODIUM E.R. 500 MG TAB PO SCH (09:25)
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
[2016-08-01] MEDS: QUEtiapine FUMARATE 25 MG TAB PO SCH (18:05)
[2016-08-01 19:00] VITALS: BP 133/68; PULSE 84; RESP 18; TEMP 97.6; O2SAT 98
[2016-08-01] MEDS: DIVALPROEX SODIUM E.R. 250 MG TAB PO SCH (21:25)
[2016-08-02 06:00] VITALS: BP 120/62; PULSE 66; RESP 18; TEMP 98.3; O2SAT 97
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
[2016-08-02] MEDS: CHOLECALCIFEROL (VIT D3) 1000 UNIT TAB PO SCH (09:00)
[2016-08-02] MEDS: LACOSAMIDE 100 MG TAB PO SCH ×2 (09:05→20:12)
[2016-08-02] MEDS: QUEtiapine FUMARATE 100 MG TAB PO SCH ×3 (09:06→18:00)
[2016-08-02] MEDS: GABAPENTIN 300 MG CAP PO SCH ×3 (09:06→18:00)
[2016-08-02] MEDS: levETIRAcetam 500 MG TAB PO SCH ×3 (09:06→18:00)
[2016-08-02] MEDS: DIVALPROEX SODIUM E.R. 500 MG TAB PO SCH (09:06)
[2016-08-02 17:46] VITALS: BP 129/83; PULSE 81; RESP 20; TEMP 98; O2SAT 100
[2016-08-02] MEDS: DIVALPROEX SODIUM E.R. 250 MG TAB PO SCH (20:12)
[2016-08-02 23:28] VITALS: BP 129/83; PULSE 81; RESP 20; TEMP 98; O2SAT 100
[2016-08-03 05:46] VITALS: BP 114/74; PULSE 92; RESP 16; TEMP 97.9; O2SAT 97
[2016-08-03] MEDS: QUEtiapine FUMARATE 100 MG TAB PO SCH ×3 (08:47→18:07)
[2016-08-03] MEDS: CHOLECALCIFEROL (VIT D3) 1000 UNIT TAB PO SCH (08:47)
[2016-08-03] MEDS: DIVALPROEX SODIUM E.R. 500 MG TAB PO SCH (08:47)
[2016-08-03] MEDS: levETIRAcetam 500 MG TAB PO SCH ×3 (08:47→18:07)
[2016-08-03] MEDS: LACOSAMIDE 100 MG TAB PO SCH ×2 (08:47→21:53)
[2016-08-03] MEDS: GABAPENTIN 300 MG CAP PO SCH ×3 (08:47→18:07)
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
[2016-08-03 18:00] VITALS: BP 145/61; PULSE 76
[2016-08-03 18:01] VITALS: BP 137/88
[2016-08-03] MEDS: DIVALPROEX SODIUM E.R. 250 MG TAB PO SCH (21:53)
[2016-08-04 06:03] VITALS: BP 105/73; PULSE 94; RESP 16; TEMP 98; O2SAT 96
[2016-08-04] MEDS: levETIRAcetam 500 MG TAB PO SCH ×3 (09:14→18:13)
[2016-08-04] MEDS: GABAPENTIN 300 MG CAP PO SCH ×3 (09:14→18:13)
[2016-08-04] MEDS: DIVALPROEX SODIUM E.R. 500 MG TAB PO SCH (09:14)
[2016-08-04] MEDS: LACOSAMIDE 100 MG TAB PO SCH ×2 (09:14→21:14)
[2016-08-04] MEDS: CHOLECALCIFEROL (VIT D3) 1000 UNIT TAB PO SCH (09:14)
[2016-08-04] MEDS: QUEtiapine FUMARATE 100 MG TAB PO SCH ×3 (09:14→18:13)
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
[2016-08-04 13:30] VITALS: BP 137/81; PULSE 97; RESP 20; TEMP 98.2; O2SAT 98
[2016-08-04 17:37] VITALS: BP 126/88; PULSE 92; RESP 18; TEMP 97.9; O2SAT 100
[2016-08-04 17:47] VITALS: BP 113/77; PULSE 94; RESP 15; TEMP 98.2
[2016-08-04 17:51] VITALS: O2SAT 99
[2016-08-04] MEDS: DIVALPROEX SODIUM E.R. 250 MG TAB PO SCH (21:14)
[2016-08-05 06:38] VITALS: BP 115/66; PULSE 95; RESP 16; TEMP 98.6; O2SAT 94
[2016-08-05] MEDS: CHOLECALCIFEROL (VIT D3) 1000 UNIT TAB PO SCH (08:45)
[2016-08-05] MEDS: DIVALPROEX SODIUM E.R. 500 MG TAB PO SCH (08:46)
[2016-08-05] MEDS: GABAPENTIN 300 MG CAP PO SCH ×3 (08:46→17:52)
[2016-08-05] MEDS: LACOSAMIDE 100 MG TAB PO SCH ×2 (08:46→21:07)
[2016-08-05] MEDS: levETIRAcetam 500 MG TAB PO SCH ×3 (08:46→17:52)
[2016-08-05] MEDS: QUEtiapine FUMARATE 100 MG TAB PO SCH ×3 (08:46→17:52)
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
[2016-08-05 18:00] VITALS: BP 117/83; PULSE 89; RESP 16; TEMP 98.6; O2SAT 100
[2016-08-05] MEDS: MAGNESIUM HYDROXIDE SUSP 30 ML CUP PO PRN (21:06)
[2016-08-05] MEDS: DIVALPROEX SODIUM E.R. 250 MG TAB PO SCH (21:07)
[2016-08-05 22:30] VITALS: BP 114/66; PULSE 90; RESP 18; O2SAT 99
[2016-08-05 23:04] VITALS: BP 158/75; PULSE 92; RESP 18; TEMP 98; O2SAT 98
[2016-08-05 23:30] VITALS: BP 114/66; PULSE 90; RESP 18; O2SAT 99
[2016-08-06 00:30] VITALS: BP 96/61; PULSE 85; RESP 18; O2SAT 99
[2016-08-06 04:36] VITALS: BP 100/61; PULSE 87; RESP 19; TEMP 98.8; O2SAT 98
[2016-08-06 04:55] VITALS: BP 123/79; PULSE 77; RESP 21; TEMP 97.8; O2SAT 100
[2016-08-06] MEDS: CHOLECALCIFEROL (VIT D3) 1000 UNIT TAB PO SCH (08:17)
[2016-08-06] MEDS: GABAPENTIN 300 MG CAP PO SCH ×3 (08:18→17:09)
[2016-08-06] MEDS: DIVALPROEX SODIUM E.R. 500 MG TAB PO SCH (08:18)
[2016-08-06] MEDS: QUEtiapine FUMARATE 100 MG TAB PO SCH ×3 (08:18→17:09)
[2016-08-06] MEDS: levETIRAcetam 500 MG TAB PO SCH ×3 (08:19→17:09)
[2016-08-06] MEDS: LACOSAMIDE 100 MG TAB PO SCH ×2 (08:19→21:41)
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
[2016-08-06 19:11] VITALS: BP 116/75; PULSE 88; RESP 17; TEMP 97.9; O2SAT 95
[2016-08-06] MEDS: DIVALPROEX SODIUM E.R. 250 MG TAB PO SCH (21:41)
[2016-08-07 00:56] VITALS: BP 93/58; PULSE 95; RESP 16; O2SAT 96
[2016-08-07 05:00] VITALS: BP 116/76; PULSE 70; RESP 17; TEMP 98.1; O2SAT 96
[2016-08-07] MEDS: CHOLECALCIFEROL (VIT D3) 1000 UNIT TAB PO SCH (09:23)
[2016-08-07] MEDS: LACOSAMIDE 100 MG TAB PO SCH ×2 (09:23→20:21)
[2016-08-07] MEDS: levETIRAcetam 500 MG TAB PO SCH ×3 (09:23→17:25)
[2016-08-07] MEDS: GABAPENTIN 300 MG CAP PO SCH ×3 (09:24→17:25)
[2016-08-07] MEDS: QUEtiapine FUMARATE 100 MG TAB PO SCH ×3 (09:24→17:25)
[2016-08-07] MEDS: DIVALPROEX SODIUM E.R. 500 MG TAB PO SCH (09:24)
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
[2016-08-07 18:00] VITALS: BP 105/75; PULSE 98; RESP 16; TEMP 98.6; O2SAT 98
[2016-08-07] MEDS: DIVALPROEX SODIUM E.R. 250 MG TAB PO SCH (20:21)
[2016-08-07] MEDS: traZODone HCL 50 MG TAB PO PRN (20:53)
[2016-08-07] MEDS: ACETAMINOPHEN 325 MG TAB PO PRN (20:54)
[2016-08-08 06:06] VITALS: BP 107/72; PULSE 79; RESP 18; TEMP 98.2; O2SAT 95
[2016-08-08] MEDS: GABAPENTIN 300 MG CAP PO SCH ×3 (08:55→18:16)
[2016-08-08] MEDS: DIVALPROEX SODIUM E.R. 500 MG TAB PO SCH (08:55)
[2016-08-08] MEDS: QUEtiapine FUMARATE 100 MG TAB PO SCH ×3 (08:55→18:15)
[2016-08-08] MEDS: LACOSAMIDE 100 MG TAB PO SCH ×2 (08:55→20:16)
[2016-08-08] MEDS: CHOLECALCIFEROL (VIT D3) 1000 UNIT TAB PO SCH (08:56)
[2016-08-08] MEDS: levETIRAcetam 500 MG TAB PO SCH ×3 (08:56→18:15)
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
[2016-08-08 20:00] VITALS: BP 104/82; PULSE 82; RESP 16; TEMP 97.8
[2016-08-08] MEDS: DIVALPROEX SODIUM E.R. 250 MG TAB PO SCH (20:17)
[2016-08-09 05:53] VITALS: BP 101/64; PULSE 81; RESP 18; TEMP 97.7; O2SAT 96
[2016-08-09] MEDS: LACOSAMIDE 100 MG TAB PO SCH ×2 (08:07→20:55)
[2016-08-09] MEDS: CHOLECALCIFEROL (VIT D3) 1000 UNIT TAB PO SCH (08:07)
[2016-08-09] MEDS: QUEtiapine FUMARATE 100 MG TAB PO SCH ×3 (08:08→17:35)
[2016-08-09] MEDS: GABAPENTIN 300 MG CAP PO SCH ×3 (08:08→17:35)
[2016-08-09] MEDS: DIVALPROEX SODIUM E.R. 500 MG TAB PO SCH (08:08)
[2016-08-09] MEDS: levETIRAcetam 500 MG TAB PO SCH ×3 (08:09→17:35)
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
[2016-08-09 18:35] VITALS: BP 118/66; PULSE 100; RESP 18; TEMP 97.7; O2SAT 94
[2016-08-09] MEDS: DIVALPROEX SODIUM E.R. 250 MG TAB PO SCH (20:54)
[2016-08-09] MEDS: ACETAMINOPHEN 325 MG TAB PO PRN (21:58)
[2016-08-10 05:49] VITALS: BP 108/69; PULSE 82; RESP 18; TEMP 98.5; O2SAT 98
[2016-08-10] MEDS: DIVALPROEX SODIUM E.R. 500 MG TAB PO SCH (08:18)
[2016-08-10] MEDS: QUEtiapine FUMARATE 100 MG TAB PO SCH ×3 (08:18→18:00)
[2016-08-10] MEDS: GABAPENTIN 300 MG CAP PO SCH ×3 (08:19→17:59)
[2016-08-10] MEDS: LACOSAMIDE 100 MG TAB PO SCH ×2 (08:19→21:11)
[2016-08-10] MEDS: levETIRAcetam 500 MG TAB PO SCH ×3 (08:19→18:00)
[2016-08-10] MEDS: CHOLECALCIFEROL (VIT D3) 1000 UNIT TAB PO SCH (08:19)
[2016-08-10 19:25] VITALS: BP 116/68; PULSE 98; RESP 17; TEMP 98.2; O2SAT 95
[2016-08-10] MEDS: traZODone HCL 50 MG TAB PO PRN (21:11)
[2016-08-10] MEDS: DIVALPROEX SODIUM E.R. 250 MG TAB PO SCH (21:11)
[2016-08-11 05:02] VITALS: BP 115/75; PULSE 90; RESP 18; TEMP 98.3; O2SAT 95
[2016-08-11] MEDS: ACETAMINOPHEN 325 MG TAB PO PRN ×2 (06:51→21:10)
[2016-08-11] MEDS: CHOLECALCIFEROL (VIT D3) 1000 UNIT TAB PO SCH (08:08)
[2016-08-11] MEDS: levETIRAcetam 500 MG TAB PO SCH ×3 (08:08→17:44)
[2016-08-11] MEDS: QUEtiapine FUMARATE 100 MG TAB PO SCH ×3 (08:08→17:44)
[2016-08-11] MEDS: DIVALPROEX SODIUM E.R. 500 MG TAB PO SCH (08:08)
[2016-08-11] MEDS: LACOSAMIDE 100 MG TAB PO SCH ×2 (08:08→20:18)
[2016-08-11] MEDS: GABAPENTIN 300 MG CAP PO SCH ×3 (08:08→17:44)
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
[2016-08-11 18:14] VITALS: BP 119/77; PULSE 96; RESP 20
[2016-08-11 18:46] VITALS: BP 119/77; PULSE 96; RESP 18; TEMP 98.5; O2SAT 100
[2016-08-11 19:00] VITALS: BP 119/77; PULSE 96; RESP 18; TEMP 98.5; O2SAT 100
[2016-08-11] MEDS: traZODone HCL 50 MG TAB PO PRN (20:17)
[2016-08-11] MEDS: DIVALPROEX SODIUM E.R. 250 MG TAB PO SCH (20:18)
--- NOTE | 2016-08-11 22:04 | RADRPT ---
EXAM DATE/TIME: 08/11/2016 21:18 [facility] COMPARISON: No previous studies available for comparison. INDICATIONS : Right ankle pain. Patient claims they had a fall today. MEDICAL HISTORY : None. SURGICAL HISTORY : None. ENCOUNTER: Initial ACUITY: 2 days PAIN SCORE: 10/10 LOCATION: Right ankle FINDINGS: An acute fracture is not clearly seen. The ankle appears normally aligned. There is a corticated [place] density seen inferior to the medial malleolus which likely represents a sequela of a prior injury. There does appear to be soft tissue swelling seen laterally. The subtalar joint appears normally a ligned. The ankle joint is normally aligned. CONCLUSION: Soft tissue swelling being most prominent medially. Oz Bowen MD on August 11, 2016 at 21:57 Board Certified Radiologist. This report was verified electronically.
[2016-08-12 05:46] VITALS: BP 131/65; PULSE 84; RESP 17; TEMP 97.9; O2SAT 94
[2016-08-12 08:00] VITALS: BP 130/66; PULSE 84; TEMP 98
[2016-08-12] MEDS: ACETAMINOPHEN 325 MG TAB PO PRN (08:28)
[2016-08-12] MEDS: DIVALPROEX SODIUM E.R. 500 MG TAB PO SCH (09:05)
[2016-08-12] MEDS: CHOLECALCIFEROL (VIT D3) 1000 UNIT TAB PO SCH (09:05)
[2016-08-12] MEDS: QUEtiapine FUMARATE 100 MG TAB PO SCH ×3 (09:05→18:07)
[2016-08-12] MEDS: levETIRAcetam 500 MG TAB PO SCH ×3 (09:05→18:07)
[2016-08-12] MEDS: GABAPENTIN 300 MG CAP PO SCH ×3 (09:06→18:07)
[2016-08-12] MEDS: LACOSAMIDE 100 MG TAB PO SCH ×2 (09:06→20:50)
[2016-08-12] MEDS: IBUPROFEN 600 MG TAB PO SCH ×2 (14:03→20:50)
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
[2016-08-12 16:00] VITALS: BP 124/73; PULSE 88; RESP 18; O2SAT 96
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
[2016-08-12 18:17] LABS: INDIRECT BILIRUBIN 0.3 MG/DL (0.0-0.8); TOTAL BILIRUBIN ADULT 0.4 MG/DL (0.2-1.0)
[2016-08-12] MEDS: DIVALPROEX SODIUM E.R. 250 MG TAB PO SCH (20:49)
[2016-08-13] MEDS: IBUPROFEN 600 MG TAB PO SCH ×3 (05:56→20:42)
[2016-08-13 06:47] VITALS: BP 127/79; PULSE 94; RESP 18; TEMP 98.6; O2SAT 96
[2016-08-13] MEDS: CHOLECALCIFEROL (VIT D3) 1000 UNIT TAB PO SCH (08:58)
[2016-08-13] MEDS: LACOSAMIDE 100 MG TAB PO SCH ×2 (08:58→23:25)
[2016-08-13] MEDS: GABAPENTIN 300 MG CAP PO SCH ×3 (08:58→18:57)
[2016-08-13] MEDS: levETIRAcetam 500 MG TAB PO SCH ×3 (08:58→18:57)
[2016-08-13] MEDS: DIVALPROEX SODIUM E.R. 500 MG TAB PO SCH (08:58)
[2016-08-13] MEDS: QUEtiapine FUMARATE 100 MG TAB PO SCH ×3 (08:58→18:57)
--- NOTE | 2016-08-13 13:30 | HHI.PR ---
Subjective Remarks Pain improved on NSAIDS. She is feeling near baseline now. No other complaints. She should finish her nsaids (3 days more) then they will be discontinued. Stop date is ordered. Medically stable now. Medical consult team will sign off today. Objective Vital Signs Date Time Temp Pulse Resp B/P Pulse Ox O2 Delivery O2 Flow Rate FiO2 08/13/16 06:47 98.6 94 18 127/79 96 08/12/16 21:50 20 08/12/16 16:00 88 18 124/73 96 I/O 08/12/16 08/12/16 08/12/16 08/13/16 08/13/16 08/13/16 07:00 15:00 23:00 07:00 15:00 23:00 Intake Total 600 ml Balance 600 ml Intake Oral 600 ml Objective Remarks GENERAL: NAD, A&Ox3 SKIN: Warm and dry. HEAD: Normocephalic. EYES: No scleral icterus. No injection or drainage. NECK: Supple, trachea midline. No JVD or lymphadenopathy. CARDIOVASCULAR: Regular rate and rhythm without murmurs, gallops, or rubs. RESPIRATORY: Breath sounds equal bilaterally. No accessory muscle use. GASTROINTESTINAL: Abdomen soft, non-tender, nondistended. MUSCULOSKELETAL: No cyanosis, or edema. BACK: Nontender without obvious deformity. No CVA tenderness. A/P Assessment and Plan Status post fall Joint Pains Myalgias Improved on NSAIDs Continue treatment for 3 days more, then treatment ends Medical Consult team will sign off today Gilberto Nguyen MD Aug 13, 2016 13:30
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
[2016-08-13 18:00] VITALS: BP 127/73; PULSE 81; RESP 18; TEMP 97.8; O2SAT 100
[2016-08-13] MEDS: DIVALPROEX SODIUM E.R. 250 MG TAB PO SCH (20:41)
[2016-08-13 23:30] VITALS: BP 136/61; PULSE 83; RESP 18; TEMP 98.7; O2SAT 98
[2016-08-13] MEDS: ACETAMINOPHEN 325 MG TAB PO PRN (23:40)
[2016-08-14 01:30] VITALS: BP 108/65; PULSE 65; RESP 20; TEMP 98.7; O2SAT 96
[2016-08-14 02:30] VITALS: BP 116/72; PULSE 68; RESP 18; O2SAT 97
[2016-08-14] MEDS: IBUPROFEN 600 MG TAB PO SCH ×3 (05:42→21:07)
[2016-08-14 06:00] VITALS: BP 118/62; PULSE 82; RESP 18; TEMP 97.9; O2SAT 98
[2016-08-14] MEDS: GABAPENTIN 300 MG CAP PO SCH ×3 (08:24→16:56)
[2016-08-14] MEDS: LACOSAMIDE 100 MG TAB PO SCH ×2 (08:24→21:07)
[2016-08-14] MEDS: CHOLECALCIFEROL (VIT D3) 1000 UNIT TAB PO SCH (08:25)
[2016-08-14] MEDS: levETIRAcetam 500 MG TAB PO SCH ×3 (08:25→16:56)
[2016-08-14] MEDS: DIVALPROEX SODIUM E.R. 500 MG TAB PO SCH (08:25)
[2016-08-14] MEDS: QUEtiapine FUMARATE 100 MG TAB PO SCH ×3 (08:25→16:56)
[2016-08-14 11:48] VITALS: BP 120/75; PULSE 80; RESP 16
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
[2016-08-14] MEDS ORDERED: NEUR300C PO (14:16)
[2016-08-14] MEDS ORDERED: DEPA500T3 PO (14:16)
[2016-08-14] MEDS ORDERED: VITA100018 PO (14:16)
[2016-08-14] MEDS ORDERED: LEVE500 PO (14:16)
[2016-08-14] MEDS ORDERED: QUET1TAB8 PO (14:16)
[2016-08-14] MEDS ORDERED: DIVA250ER PO (14:16)
[2016-08-14] MEDS ORDERED: LACO100 PO (14:16)
[2016-08-14] MEDS: traZODone HCL 50 MG TAB PO PRN (21:06)
[2016-08-14] MEDS: ACETAMINOPHEN 325 MG TAB PO PRN (21:06)
[2016-08-14] MEDS: DIVALPROEX SODIUM E.R. 250 MG TAB PO SCH (21:06)
[2016-08-14 22:07] VITALS: BP 128/81; PULSE 94; RESP 16; TEMP 97.5; O2SAT 100
[2016-08-15 06:00] VITALS: BP 96/51; PULSE 66; RESP 18; TEMP 98; O2SAT 98
[2016-08-15] MEDS: IBUPROFEN 600 MG TAB PO SCH ×4 (06:10→21:52)
[2016-08-15] MEDS: levETIRAcetam 500 MG TAB PO SCH ×3 (08:24→18:20)
[2016-08-15] MEDS: DIVALPROEX SODIUM E.R. 500 MG TAB PO SCH (08:24)
[2016-08-15] MEDS: QUEtiapine FUMARATE 100 MG TAB PO SCH ×3 (08:25→18:20)
[2016-08-15] MEDS: CHOLECALCIFEROL (VIT D3) 1000 UNIT TAB PO SCH (08:25)
[2016-08-15] MEDS: LACOSAMIDE 100 MG TAB PO SCH ×2 (08:25→21:05)
[2016-08-15] MEDS: GABAPENTIN 300 MG CAP PO SCH ×3 (08:25→18:20)
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
[2016-08-15 16:57] VITALS: BP 119/82; PULSE 78; RESP 18; TEMP 97.2; O2SAT 97
[2016-08-15] MEDS: DIVALPROEX SODIUM E.R. 250 MG TAB PO SCH (21:05)
[2016-08-15] MEDS: traZODone HCL 50 MG TAB PO PRN (21:07)
[2016-08-16 05:55] VITALS: BP 113/61; PULSE 86; RESP 16; TEMP 97; O2SAT 100
[2016-08-16] MEDS: IBUPROFEN 600 MG TAB PO SCH (06:03)
[2016-08-16 06:20] VITALS: BP 124/71; PULSE 82; RESP 16; TEMP 97.9; O2SAT 98
[2016-08-16] MEDS: GABAPENTIN 300 MG CAP PO SCH ×3 (08:38→18:27)
[2016-08-16] MEDS: LACOSAMIDE 100 MG TAB PO SCH ×2 (08:38→21:16)
[2016-08-16] MEDS: levETIRAcetam 500 MG TAB PO SCH ×3 (08:38→18:27)
[2016-08-16] MEDS: CHOLECALCIFEROL (VIT D3) 1000 UNIT TAB PO SCH (08:38)
[2016-08-16] MEDS: QUEtiapine FUMARATE 100 MG TAB PO SCH ×3 (08:38→18:27)
[2016-08-16] MEDS: DIVALPROEX SODIUM E.R. 500 MG TAB PO SCH (08:42)
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
[2016-08-16 18:05] VITALS: BP 123/72; PULSE 74; RESP 16; TEMP 97.4; O2SAT 100
[2016-08-16] MEDS: DIVALPROEX SODIUM E.R. 250 MG TAB PO SCH (21:17)
[2016-08-17 06:23] VITALS: BP 114/68; PULSE 86; RESP 16; TEMP 99.2; O2SAT 98
[2016-08-17] MEDS: GABAPENTIN 300 MG CAP PO SCH ×3 (08:21→17:35)
[2016-08-17] MEDS: LACOSAMIDE 100 MG TAB PO SCH ×2 (08:21→21:29)
[2016-08-17] MEDS: CHOLECALCIFEROL (VIT D3) 1000 UNIT TAB PO SCH (08:21)
[2016-08-17] MEDS: levETIRAcetam 500 MG TAB PO SCH ×3 (08:21→17:35)
[2016-08-17] MEDS: QUEtiapine FUMARATE 100 MG TAB PO SCH ×3 (08:21→17:35)
[2016-08-17] MEDS: DIVALPROEX SODIUM E.R. 500 MG TAB PO SCH (08:22)
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
[2016-08-17 20:20] VITALS: BP 122/66; PULSE 86; RESP 17; TEMP 98.1; O2SAT 97
[2016-08-17] MEDS: DIVALPROEX SODIUM E.R. 250 MG TAB PO SCH (21:29)
[2016-08-18 06:26] VITALS: BP 105/74; PULSE 82; RESP 17; TEMP 96.4; O2SAT 96
[2016-08-18] MEDS: LACOSAMIDE 100 MG TAB PO SCH ×2 (08:40→21:19)
[2016-08-18] MEDS: QUEtiapine FUMARATE 100 MG TAB PO SCH ×3 (08:41→18:51)
[2016-08-18] MEDS: DIVALPROEX SODIUM E.R. 500 MG TAB PO SCH (08:41)
[2016-08-18] MEDS: levETIRAcetam 500 MG TAB PO SCH ×3 (08:41→18:51)
[2016-08-18] MEDS: GABAPENTIN 300 MG CAP PO SCH ×3 (08:41→18:51)
[2016-08-18] MEDS: CHOLECALCIFEROL (VIT D3) 1000 UNIT TAB PO SCH (08:41)
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
[2016-08-18 18:47] VITALS: BP 121/54; PULSE 84; RESP 18; TEMP 98.6; O2SAT 99
[2016-08-18] MEDS: DIVALPROEX SODIUM E.R. 250 MG TAB PO SCH (21:19)
[2016-08-19 06:08] VITALS: BP 121/77; PULSE 83; RESP 16; TEMP 98; O2SAT 98
[2016-08-19] MEDS: QUEtiapine FUMARATE 100 MG TAB PO SCH ×3 (08:35→18:10)
[2016-08-19] MEDS: GABAPENTIN 300 MG CAP PO SCH ×3 (08:35→18:10)
[2016-08-19] MEDS: CHOLECALCIFEROL (VIT D3) 1000 UNIT TAB PO SCH (08:35)
[2016-08-19] MEDS: LACOSAMIDE 100 MG TAB PO SCH ×2 (08:35→21:21)
[2016-08-19] MEDS: DIVALPROEX SODIUM E.R. 500 MG TAB PO SCH (08:35)
[2016-08-19] MEDS: levETIRAcetam 500 MG TAB PO SCH ×3 (08:35→18:10)
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
[2016-08-19 17:57] VITALS: BP 124/74; PULSE 78; RESP 18; TEMP 97.3; O2SAT 99
[2016-08-19] MEDS: DIVALPROEX SODIUM E.R. 250 MG TAB PO SCH (21:21)
[2016-08-20 06:30] VITALS: BP 116/69; PULSE 69; RESP 19; TEMP 98.2; O2SAT 97
[2016-08-20] MEDS: LACOSAMIDE 100 MG TAB PO SCH ×2 (09:06→21:14)
[2016-08-20] MEDS: CHOLECALCIFEROL (VIT D3) 1000 UNIT TAB PO SCH (09:06)
[2016-08-20] MEDS: GABAPENTIN 300 MG CAP PO SCH ×3 (09:06→18:18)
[2016-08-20] MEDS: DIVALPROEX SODIUM E.R. 500 MG TAB PO SCH (09:06)
[2016-08-20] MEDS: QUEtiapine FUMARATE 100 MG TAB PO SCH ×3 (09:07→18:18)
[2016-08-20] MEDS: levETIRAcetam 500 MG TAB PO SCH ×3 (09:07→18:18)
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
[2016-08-20] MEDS: DIVALPROEX SODIUM E.R. 250 MG TAB PO SCH (21:14)
[2016-08-20 21:39] VITALS: BP 115/85; PULSE 77; RESP 18; TEMP 97.9; O2SAT 98
[2016-08-21 06:12] VITALS: BP 120/70; PULSE 66; RESP 16; TEMP 99.1
[2016-08-21] MEDS: QUEtiapine FUMARATE 100 MG TAB PO SCH ×3 (08:42→18:21)
[2016-08-21] MEDS: levETIRAcetam 500 MG TAB PO SCH ×3 (08:42→18:21)
[2016-08-21] MEDS: DIVALPROEX SODIUM E.R. 500 MG TAB PO SCH (08:42)
[2016-08-21] MEDS: LACOSAMIDE 100 MG TAB PO SCH ×2 (08:42→21:10)
[2016-08-21] MEDS: GABAPENTIN 300 MG CAP PO SCH ×3 (08:42→18:21)
[2016-08-21] MEDS: CHOLECALCIFEROL (VIT D3) 1000 UNIT TAB PO SCH (08:43)
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
[2016-08-21 18:00] VITALS: BP 100/73; PULSE 93; RESP 18; TEMP 97.4; O2SAT 95
[2016-08-21] MEDS: DIVALPROEX SODIUM E.R. 250 MG TAB PO SCH (21:11)
[2016-08-22 05:36] VITALS: BP 129/61; PULSE 86; RESP 18; TEMP 98; O2SAT 96
[2016-08-22] MEDS: QUEtiapine FUMARATE 100 MG TAB PO SCH ×3 (08:35→18:00)
[2016-08-22] MEDS: levETIRAcetam 500 MG TAB PO SCH ×3 (08:35→18:00)
[2016-08-22] MEDS: GABAPENTIN 300 MG CAP PO SCH ×3 (08:35→18:00)
[2016-08-22] MEDS: LACOSAMIDE 100 MG TAB PO SCH ×2 (08:35→20:39)
[2016-08-22] MEDS: CHOLECALCIFEROL (VIT D3) 1000 UNIT TAB PO SCH (08:35)
[2016-08-22] MEDS: DIVALPROEX SODIUM E.R. 500 MG TAB PO SCH (08:35)
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
[2016-08-22 17:58] VITALS: BP 92/74; PULSE 91; RESP 18; TEMP 96.9; O2SAT 97
[2016-08-22] MEDS: DIVALPROEX SODIUM E.R. 250 MG TAB PO SCH (20:39)
[2016-08-22] MEDS: traZODone HCL 50 MG TAB PO PRN (23:13)
[2016-08-23 05:38] VITALS: BP 127/70; PULSE 79; RESP 16; TEMP 98.2
[2016-08-23] MEDS: levETIRAcetam 500 MG TAB PO SCH ×3 (09:06→18:01)
[2016-08-23] MEDS: QUEtiapine FUMARATE 100 MG TAB PO SCH ×3 (09:07→18:01)
[2016-08-23] MEDS: GABAPENTIN 300 MG CAP PO SCH ×3 (09:07→18:01)
[2016-08-23] MEDS: DIVALPROEX SODIUM E.R. 500 MG TAB PO SCH (09:07)
[2016-08-23] MEDS: CHOLECALCIFEROL (VIT D3) 1000 UNIT TAB PO SCH (09:07)
[2016-08-23] MEDS: LACOSAMIDE 100 MG TAB PO SCH ×2 (09:07→20:36)
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
[2016-08-23 17:23] VITALS: BP 116/82; PULSE 89; RESP 16; TEMP 97.6; O2SAT 94
[2016-08-23 18:00] VITALS: BP 116/82; PULSE 89; RESP 16; TEMP 97.6; O2SAT 94
[2016-08-23] MEDS: DIVALPROEX SODIUM E.R. 250 MG TAB PO SCH (20:36)
[2016-08-24 05:37] VITALS: BP 95/69; PULSE 67; RESP 18; TEMP 98.9; O2SAT 95
[2016-08-24] MEDS: GABAPENTIN 300 MG CAP PO SCH ×3 (08:27→18:00)
[2016-08-24] MEDS: QUEtiapine FUMARATE 100 MG TAB PO SCH ×3 (08:27→18:00)
[2016-08-24] MEDS: levETIRAcetam 500 MG TAB PO SCH ×3 (08:27→18:00)
[2016-08-24] MEDS: LACOSAMIDE 100 MG TAB PO SCH ×2 (08:27→21:14)
[2016-08-24] MEDS: CHOLECALCIFEROL (VIT D3) 1000 UNIT TAB PO SCH (08:27)
[2016-08-24] MEDS: DIVALPROEX SODIUM E.R. 500 MG TAB PO SCH (08:28)
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
[2016-08-24 20:06] VITALS: BP 127/60; PULSE 76; RESP 17; TEMP 99.1; O2SAT 96
[2016-08-24] MEDS: DIVALPROEX SODIUM E.R. 250 MG TAB PO SCH (21:14)
[2016-08-25] MEDS: ACETAMINOPHEN 325 MG TAB PO PRN (04:33)
[2016-08-25 06:04] VITALS: BP 110/73; PULSE 82; RESP 18; TEMP 97.9; O2SAT 95
[2016-08-25] MEDS: CHOLECALCIFEROL (VIT D3) 1000 UNIT TAB PO SCH (08:16)
[2016-08-25] MEDS: levETIRAcetam 500 MG TAB PO SCH ×3 (08:16→18:00)
[2016-08-25] MEDS: QUEtiapine FUMARATE 100 MG TAB PO SCH ×3 (08:17→18:00)
[2016-08-25] MEDS: DIVALPROEX SODIUM E.R. 500 MG TAB PO SCH (08:17)
[2016-08-25] MEDS: GABAPENTIN 300 MG CAP PO SCH ×3 (08:17→18:00)
[2016-08-25] MEDS: LACOSAMIDE 100 MG TAB PO SCH ×2 (08:17→20:09)
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
[2016-08-25 18:00] VITALS: BP 114/58; PULSE 119; RESP 16; TEMP 97.2; O2SAT 95
[2016-08-25] MEDS: DIVALPROEX SODIUM E.R. 250 MG TAB PO SCH (20:09)
[2016-08-26 05:29] VITALS: BP 104/60; PULSE 81; RESP 17; TEMP 98.6; O2SAT 96
[2016-08-26] MEDS: levETIRAcetam 500 MG TAB PO SCH ×3 (08:22→17:37)
[2016-08-26] MEDS: LACOSAMIDE 100 MG TAB PO SCH ×2 (08:22→21:13)
[2016-08-26] MEDS: DIVALPROEX SODIUM E.R. 500 MG TAB PO SCH (08:22)
[2016-08-26] MEDS: QUEtiapine FUMARATE 100 MG TAB PO SCH ×3 (08:22→17:37)
[2016-08-26] MEDS: CHOLECALCIFEROL (VIT D3) 1000 UNIT TAB PO SCH (08:23)
[2016-08-26] MEDS: GABAPENTIN 300 MG CAP PO SCH ×3 (08:23→17:37)
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
[2016-08-26] MEDS: ACETAMINOPHEN 325 MG TAB PO PRN (14:15)
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
[2016-08-26 18:02] VITALS: BP 123/80; PULSE 89; RESP 18; TEMP 98.7; O2SAT 94
[2016-08-26] MEDS: DIVALPROEX SODIUM E.R. 250 MG TAB PO SCH (21:13)
[2016-08-27] MEDS: DIVALPROEX SODIUM E.R. 500 MG TAB PO SCH (08:35)
[2016-08-27] MEDS: GABAPENTIN 300 MG CAP PO SCH ×3 (08:35→18:29)
[2016-08-27] MEDS: QUEtiapine FUMARATE 100 MG TAB PO SCH ×3 (08:35→18:29)
[2016-08-27] MEDS: levETIRAcetam 500 MG TAB PO SCH ×3 (08:35→18:29)
[2016-08-27] MEDS: LACOSAMIDE 100 MG TAB PO SCH ×2 (08:35→21:10)
[2016-08-27] MEDS: CHOLECALCIFEROL (VIT D3) 1000 UNIT TAB PO SCH (08:36)
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
[2016-08-27 15:40] VITALS: BP 123/60; PULSE 74; RESP 18; TEMP 97.2
[2016-08-27 20:00] VITALS: BP 123/60; PULSE 74; RESP 18; TEMP 97.2; O2SAT 100
[2016-08-27] MEDS: DIVALPROEX SODIUM E.R. 250 MG TAB PO SCH (21:10)
[2016-08-28 06:00] VITALS: BP 115/74; PULSE 70; RESP 18; TEMP 97.9; O2SAT 96
[2016-08-28] MEDS: QUEtiapine FUMARATE 100 MG TAB PO SCH ×3 (08:37→17:55)
[2016-08-28] MEDS: LACOSAMIDE 100 MG TAB PO SCH ×2 (08:37→21:02)
[2016-08-28] MEDS: GABAPENTIN 300 MG CAP PO SCH ×3 (08:37→17:55)
[2016-08-28] MEDS: CHOLECALCIFEROL (VIT D3) 1000 UNIT TAB PO SCH (08:37)
[2016-08-28] MEDS: levETIRAcetam 500 MG TAB PO SCH ×3 (08:37→17:55)
[2016-08-28] MEDS: DIVALPROEX SODIUM E.R. 500 MG TAB PO SCH (08:37)
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
[2016-08-28 18:00] VITALS: BP 115/77; PULSE 71; RESP 18; TEMP 97.4; O2SAT 98
[2016-08-28] MEDS: DIVALPROEX SODIUM E.R. 250 MG TAB PO SCH (21:02)
[2016-08-29 05:45] VITALS: BP 129/72; PULSE 66; RESP 18; TEMP 97.9; O2SAT 95
[2016-08-29] MEDS: levETIRAcetam 500 MG TAB PO SCH ×3 (08:16→17:29)
[2016-08-29] MEDS: DIVALPROEX SODIUM E.R. 500 MG TAB PO SCH (08:16)
[2016-08-29] MEDS: CHOLECALCIFEROL (VIT D3) 1000 UNIT TAB PO SCH (08:16)
[2016-08-29] MEDS: QUEtiapine FUMARATE 100 MG TAB PO SCH ×3 (08:16→17:29)
[2016-08-29] MEDS: LACOSAMIDE 100 MG TAB PO SCH ×2 (08:16→20:49)
[2016-08-29] MEDS: GABAPENTIN 300 MG CAP PO SCH ×3 (08:16→17:29)
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
[2016-08-29 18:14] VITALS: BP 112/76; PULSE 94; RESP 18; TEMP 97.1; O2SAT 95
[2016-08-29] MEDS: DIVALPROEX SODIUM E.R. 250 MG TAB PO SCH (20:49)
[2016-08-30 06:28] VITALS: BP 105/68; PULSE 71; RESP 16; TEMP 98.6; O2SAT 97
[2016-08-30] MEDS: LACOSAMIDE 100 MG TAB PO SCH ×2 (08:46→21:05)
[2016-08-30] MEDS: GABAPENTIN 300 MG CAP PO SCH ×3 (08:46→17:40)
[2016-08-30] MEDS: DIVALPROEX SODIUM E.R. 500 MG TAB PO SCH (08:46)
[2016-08-30] MEDS: QUEtiapine FUMARATE 100 MG TAB PO SCH ×3 (08:46→17:41)
[2016-08-30] MEDS: CHOLECALCIFEROL (VIT D3) 1000 UNIT TAB PO SCH (08:46)
[2016-08-30] MEDS: levETIRAcetam 500 MG TAB PO SCH ×3 (08:47→17:41)
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
[2016-08-30 17:13] VITALS: BP 134/85; PULSE 77; RESP 16; TEMP 97.6; O2SAT 99
[2016-08-30] MEDS: DIVALPROEX SODIUM E.R. 250 MG TAB PO SCH (21:06)
[2016-08-31 06:09] VITALS: BP 110/63; PULSE 74; RESP 16; TEMP 97.7; O2SAT 97
[2016-08-31] MEDS: QUEtiapine FUMARATE 100 MG TAB PO SCH ×3 (08:52→18:11)
[2016-08-31] MEDS: LACOSAMIDE 100 MG TAB PO SCH ×2 (08:52→20:16)
[2016-08-31] MEDS: levETIRAcetam 500 MG TAB PO SCH ×3 (08:52→18:11)
[2016-08-31] MEDS: GABAPENTIN 300 MG CAP PO SCH ×3 (08:52→18:11)
[2016-08-31] MEDS: DIVALPROEX SODIUM E.R. 500 MG TAB PO SCH (08:52)
[2016-08-31] MEDS: CHOLECALCIFEROL (VIT D3) 1000 UNIT TAB PO SCH (08:52)
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
[2016-08-31 20:14] VITALS: BP 118/78; PULSE 92; RESP 16; TEMP 97.6; O2SAT 99
[2016-08-31] MEDS: DIVALPROEX SODIUM E.R. 250 MG TAB PO SCH (20:17)
[2016-09-01 05:15] VITALS: BP 124/84; PULSE 79; RESP 16; TEMP 97.9; O2SAT 97
[2016-09-01] MEDS: DIVALPROEX SODIUM E.R. 500 MG TAB PO SCH (08:49)
[2016-09-01] MEDS: GABAPENTIN 300 MG CAP PO SCH ×2 (08:49→13:15)
[2016-09-01] MEDS: LACOSAMIDE 100 MG TAB PO SCH (08:49)
[2016-09-01] MEDS: levETIRAcetam 500 MG TAB PO SCH ×2 (08:49→13:15)
[2016-09-01] MEDS: CHOLECALCIFEROL (VIT D3) 1000 UNIT TAB PO SCH (08:49)
[2016-09-01] MEDS: QUEtiapine FUMARATE 100 MG TAB PO SCH ×2 (08:49→13:15)
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
== END 2016-09-01 16:30 | DRG 92 ==
LOC: NEPA 12:18 → NEDA 07-09 10:20 → H260 07-09 12:30
PROVIDERS: ADMIT Psychiatry & Neurology Psychiatry; ATTEND Psychiatry & Neurology Psychiatry
DX: S06.9X0S Unspecified intracranial injury without loss of consciousness, sequela (principal); F02.81 Dementia in other diseases classified elsewhere, unspecified severity, with behavioral disturbance; R56.1 Post traumatic seizures; G81.91 Hemiplegia, unspecified affecting right dominant side; R47.01 Aphasia; R45.87 Impulsiveness; F32.9 Major depressive disorder, single episode, unspecified; F41.9 Anxiety disorder, unspecified; H54.41 Blindness, right eye, normal vision left eye; M25.571 Pain in right ankle and joints of right foot; N64.4 Mastodynia; S01.90XS Unspecified open wound of unspecified part of head, sequela; Z91.81 History of falling; Z72.0 Tobacco use; Z91.410 Personal history of adult physical and sexual abuse; Z87.440 Personal history of urinary (tract) infections; W34.00XS Accidental discharge from unspecified firearms or gun, sequela; W18.2XXA Fall in (into) shower or empty bathtub, initial encounter; Y93.E1 Activity, personal bathing and showering; Y92.231 Patient bathroom in hospital as the place of occurrence of the external cause; S40.022A Contusion of left upper arm, initial encounter
CPT/HCPCS: 73600; 80048; 80061; 80074; 80076; 80164; 83036; 84146; 84703; 99284

== ENCOUNTER 2017-04-03 18:14 | Emergency (ER) | payer MEDICARE, OTHER ==
[~2017-04-03] VITALS: Ht 162.6 cm; Wt 80.0 kg
[~2017-04-03 18:14] MED LIST changes: +BUSP10TA PO; +DEPA500T3 PO; +DIVA250ER PO; +GABA300C5 PO; +LACO100 PO; +LEVE500 PO; -MACR100C2 PO; +NEUR300C PO; +QUET1TAB8 PO; +SERO100T PO; +SERO50TA PO; +VITA100018 PO
[2017-04-03 18:22] VITALS: BP 169/96; PULSE 80; RESP 18; TEMP 97.5; O2SAT 99
[2017-04-03 18:29] VITALS: BP 169/96; PULSE 80; RESP 18; TEMP 97.5; O2SAT 99
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
[2017-04-03] MEDS ORDERED: TETANUS/DIPHTHERIA TOXOID ADULT 0.5 ML VIAL IM ONE (19:00)
[2017-04-03] MEDS ORDERED: DEPA500T PO (19:11)
[2017-04-03] MEDS ORDERED: FLUO-1 PO (19:11)
[2017-04-03] MEDS ORDERED: TRAM50TA PO (19:11)
[2017-04-03] MEDS ORDERED: DEPO150I IM (19:11)
[2017-04-03] MEDS ORDERED: CLON0.1T PO (19:11)
[2017-04-03] MEDS ORDERED: ALPR.25 PO (19:11)
[2017-04-03] MEDS ORDERED: DEPA250T2 PO (19:11)
[2017-04-03] MEDS ORDERED: VIMP200T PO (19:11)
[2017-04-03] MEDS ORDERED: TYLE325T PO (19:11)
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
--- NOTE | 2017-04-03 20:21 | PD ---
Physical Exam Date Seen by Provider: Apr 03, 2017 Time Seen by Provider: 20:17 Narrative Skin: Patient has a 1.5 center laceration to the right upper eyelid. Data Data Last Documented VS Vital Signs Date Time Temp Pulse Resp B/P (MAP) Pulse Ox O2 Delivery O2 Flow Rate FiO2 04/03/17 18:29 80 18 99 04/03/17 18:29 97.5 169/96 (120) Room Air Orders Orders Ct Brain W/O Iv Contrast(Rout) (04/03/17 ) Ct Cerv Spine W/O Contrast (04/03/17 ) Ct Facial Bones W/O Iv Cont (04/03/17 ) Tetanus/Diphtheria Tox Adult (Tetanus/Di (04/03/17 19:00) Ed Discharge Order (04/03/17 20:16) MDM Medical Record Reviewed: Yes Supervised Visit with LORIE: Yes Interpretation(s) CT brain, CT facial bones, and CT cervical spine are negative for acute trauma. Differential Diagnosis MDM: High Differential diagnoses: Fracture, sprain, strain, dislocation, contusion, neurovascular injury Narrative Course CT scan of the head, neck and facial bones are negative for acute trauma. Patient's facial lacerations closed with Dermabond. Procedures Procedure Narrative LACERATION LOCATION: Right upper eyelid LENGTH: 1.5 cm NUMBER OF STITCHES/RAMIRO: Not applicable REPAIR: The area of the laceration was prepped with Betadine and sterilely draped. The wound was copiously irrigated and explored without evidence of foreign body, tendon injury or neurovascular injury. The wound was closed using Dermabond. This was a simple single layer repair. A sterile dressing was applied. The patient was advised to keep the dressing clean and dry. Patient tolerated the procedure well. Diagnosis Primary Impression: right upper eyelid laceration Additional Impressions: fall head contusion Patient Instructions: General Instructions Additional Instruction: Rest. Head precautions. Tylenol for pain. Ice packs. Avoid alcohol. Dermabond instructions. Avoid all sedating or intoxicating substances. Recheck with your physician within 2-3 days. Return to the ER for any problems. Med/Other Pt SpecificInfo: No Meds Exist/No RX given Disposition: 01 DISCHARGE HOME Condition: Stable Onur Martinez Apr 03, 2017 20:21
[2017-04-03 22:00] VITALS: BP 166/86; PULSE 78; RESP 20; O2SAT 99
[2017-04-04 07:10] VITALS: BP 161/90; PULSE 77; RESP 17; O2SAT 98
== END 2017-04-04 07:55 | disposition home or self-care (01) ==
LOC: NEPD 18:14
DX: S01.111A Laceration without foreign body of right eyelid and periocular area, initial encounter (principal); S00.93XA Contusion of unspecified part of head, initial encounter; M54.2 Cervicalgia; W19.XXXA Unspecified fall, initial encounter; Y92.538 Other ambulatory health services establishments as the place of occurrence of the external cause; Z23 Encounter for immunization; Z87.820 Personal history of traumatic brain injury; Z99.3 Dependence on wheelchair
CPT/HCPCS: 12011; 70450; 70486; 72125; 90471; 90714